=== PATIENT | male | born 1985 | race African-American/Black ===

== ENCOUNTER 2018-11-02 23:01 | Emergency (ER) | payer SELFPAY ==
[2018-11-03] MEDS ORDERED: LIDOCAINE 1% INJ-PF (10 MG/ML) 30 ML SDV INJ ONE (00:05)
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
--- NOTE | 2018-11-03 01:07 | ER Document Report ---
Procedures - Laceration/Wound Repair Distal Left FA Wound length (cm): 5 Wound's Depth, Shape: Superficial, Irregular Laceration pre-procedure: Sterile PPE donned Anesthetic type: 1% Lidocaine Wound explored: Clean Wound Debrided: Minimal Wound Repaired With: Sutures Suture Size/Type: 4:0 Number of Sutures: 8 Post-procedure NV exam normal: Yes Complications: No Mid Left FA Wound length (cm): 4 Wound's Depth, Shape: Superficial Laceration pre-procedure: Sterile PPE donned Anesthetic type: 1% Lidocaine Wound explored: Clean Wound Repaired With: Sutures Suture Size/Type: 4:0 Number of Sutures: 7 Post-procedure NV exam normal: Yes Complications: No Upper L Arm Wound length (cm): 2 Wound's Depth, Shape: Superficial Laceration pre-procedure: Sterile PPE donned Anesthetic type: 1% Lidocaine Wound explored: Clean Wound Debrided: Minimal Wound Repaired With: Sutures Suture Size/Type: 4:0 Number of Sutures: 2 Post-procedure NV exam normal: Yes Complications: No Left abdomen Wound length (cm): 4 Wound's Depth, Shape: Superficial Laceration pre-procedure: Sterile PPE donned Anesthetic type: 1% Lidocaine Wound explored: Clean Wound Debrided: Minimal Wound Repaired With: Sutures Suture Size/Type: 4:0 Number of Sutures: 4 Post-procedure NV exam normal: Yes Complications: No Misc Mid L arm lacerations x3 Wound length (cm): 3 Wound's Depth, Shape: Superficial Laceration pre-procedure: Sterile PPE donned Anesthetic type: 1% Lidocaine Wound Repaired With: Dermabond Complications: No
[2018-11-03] MEDS ORDERED: OXYCODONE-ACETAMINOPHEN 5-325 MG TABLET PO ONE (01:44)
[2018-11-03] MEDS ORDERED: IBUPROFEN 600 MG TABLET PO ONE (01:44)
[2018-11-03 01:59] VITALS: BP 121/58
== END 2018-11-03 02:31 | disposition home or self-care (01) ==
LOC: EDBD → ER 23:01
DX: S51.812A Laceration without foreign body of left forearm, initial encounter (principal); S41.112A Laceration without foreign body of left upper arm, initial encounter; S61.512A Laceration without foreign body of left wrist, initial encounter; S21.112A Laceration without foreign body of left front wall of thorax without penetration into thoracic cavity, initial encounter; S31.114A Laceration without foreign body of abdominal wall, left lower quadrant without penetration into peritoneal cavity, initial encounter; X99.9XXA Assault by unspecified sharp object, initial encounter
CPT/HCPCS: 99282; 12005; J3490

== ENCOUNTER 2018-11-11 14:18 | Emergency (ER) | payer SELFPAY ==
[2018-11-11 14:29] VITALS: BP 132/77
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
[2018-11-11] MEDS ORDERED: HYDROCODONE/ACETAMINOPHEN 5-325 MG TABLET PO ONE (15:05)
== END 2018-11-11 15:27 | disposition home or self-care (01) ==
LOC: ER 14:18
DX: L08.9 Local infection of the skin and subcutaneous tissue, unspecified (principal); S51.812A Laceration without foreign body of left forearm, initial encounter; W26.0XXA Contact with knife, initial encounter; Y93.89 Activity, other specified
CPT/HCPCS: 99282

== ENCOUNTER 2018-11-16 09:48 | Emergency (ER) | payer SELFPAY ==
[2018-11-16 09:55] VITALS: BP 128/96
[2018-11-16] MEDS ORDERED: IBUPROFEN 800 MG TABLET PO ONE (10:17)
--- NOTE | 2018-11-16 11:04 | RADIOLOGY REPORT (SQ) ---
EXAM DESCRIPTION: SACRUM AND COCCYX COMPLETED DATE/TIME: 11/16/2018 10:52 am REASON FOR STUDY: pain/fall COMPARISON: None. NUMBER OF VIEWS: Three views. TECHNIQUE: AP, lateral, and tilt views of the sacrum and coccyx. LIMITATIONS: None. FINDINGS: MINERALIZATION: Normal. BONES: No acute fracture or dislocation. No worrisome bone lesions. SOFT TISSUES: No soft tissue swelling. No foreign body. OTHER: No other significant finding. IMPRESSION: NEGATIVE STUDY OF THE SACRUM AND COCCYX. TECHNICAL DOCUMENTATION: JOB ID: [id number] [employer]- All Rights Reserved Reading location - IP/workstation name: [email or web address]
--- NOTE | 2018-11-16 11:04 | RADIOLOGY REPORT (SQ) ---
EXAM DESCRIPTION: FOOT LEFT COMPLETE COMPLETED DATE/TIME: 11/16/2018 10:52 am REASON FOR STUDY: pain COMPARISON: None. NUMBER OF VIEWS: Three views. TECHNIQUE: AP, lateral and oblique radiographic images acquired of the left foot. LIMITATIONS: None. FINDINGS: MINERALIZATION: Normal. BONES: No acute fracture or dislocation. No worrisome bone lesions. JOINTS: No effusions. SOFT TISSUES: No soft tissue swelling. No foreign body. OTHER: No other significant finding. IMPRESSION: NEGATIVE STUDY OF THE LEFT FOOT. NO RADIOGRAPHIC EVIDENCE OF ACUTE INJURY. TECHNICAL DOCUMENTATION: JOB ID: [id number] [employer]- All Rights Reserved Reading location - IP/workstation name: [email or web address]
--- NOTE | 2018-11-16 11:07 | ER Document Report ---
HPI - HPI Patient complains to provider of: foot and buttocks pain Time Seen by Provider: 11/16/18 10:15 Pain Level: 5 Context: Patient is otherwise healthy 33-year-old male presents to the emergency department for left foot pain as well as coccyx pain. Patient states yesterday evening he actually tripped and fell down 2 stairs. States he landed on the bottom of his left heel and on his buttocks. Patient's denying hitting his head, neck, upper back. Patient's denying any loss of consciousness or vomiting. Patient is denying any numbness or tingling in any extremity. Patient's denying any loss of bowel or bladder or urinary retention. Patient states his pain is mostly located in the heel of his left foot and right on his tailbone. Patient denies any pain in the lateral or medial left malleolus. - CONSTITUTIONAL Constitutional: DENIES: Fever, Chills - MUSCULOSKELETAL Musculoskeletal: REPORTS: Extremity pain - left ankle Past Medical History - General Information source: Patient - Social History Smoking Status: Never Smoker Chew tobacco use (# tins/day): No Frequency of alcohol use: None Drug Abuse: None Family History: Reviewed & Not Pertinent Patient has suicidal ideation: No Patient has homicidal ideation: No Renal/ Medical History: Denies: Hx Peritoneal Dialysis Vertical Provider Document - CONSTITUTIONAL Agree With Documented VS: Yes Notes: GENERAL: Alert, interacts well. No acute distress. HEAD: Normocephalic, atraumatic. EYES: Pupils equal, round, and reactive to light. Extraocular movements intact. ENT: Oral mucosa moist, tongue midline. NECK: Full range of motion. Supple. Trachea midline. LUNGS: Clear to auscultation bilaterally, no wheezes, rales, or rhonchi. No respiratory distress. HEART: Regular rate and rhythm. No murmur ABDOMEN: Soft, non-tender. Non-distended. Bowel sounds present in all 4 quadrants. EXTREMITIES: Moves all 4 extremities spontaneously. No edema, normal radial and dorsalis pedis pulses bilaterally. No cyanosis. Generalized pains noted in the left heel, no erythema, no ecchymosis, no swelling noted. Full range of motion left ankle, no left medial or lateral malleolus pain. No left knee pain, no left hip pain. BACK: no cervical, thoracic, lumbar midline tenderness. No saddle anesthesia, normal distal neurovascular exam. Generalized pain the patient's coccyx region. No erythema, no swelling, no ecchymosis noted. NEUROLOGICAL: Alert and oriented x3. Normal speech. cranial nerves II through XII grossly intact PSYCH: Normal affect, normal mood. SKIN: Warm, dry, normal turgor. No rashes or lesions noted. - INFECTION CONTROL TRAVEL OUTSIDE OF THE [place] IN LAST 30 DAYS: No Course - Re-evaluation Re-evalutation: 11/16/18 11:10 Foot X-Ray 11/16/18 10:17 IMPRESSION: NEGATIVE STUDY OF THE LEFT FOOT. NO RADIOGRAPHIC EVIDENCE OF ACUTE INJURY. Sacrum and Coccyx X-Ray 11/16/18 10:17 IMPRESSION: NEGATIVE STUDY OF THE SACRUM AND COCCYX. Discussed with patient these results at bedside. Discussed use of crutches and Giovany wrap for pain in right heel. Discussed close follow-up with primary care provider and orthopedics as needed. At this time will discharge with return precautions and follow-up recommendations. Verbal discharge instructions given a the bedside and opportunity for questions given. Medication warnings reviewed. Patient is in agreement with this plan and has verbalized understanding of return precautions and the need for primary care follow-up in the next 24-72 hours. This medical record was dictated with voice recognizing software. There may be grammatical, syntax errors that are unintended. - Vital Signs Vital signs: Temp Pulse Resp BP Pulse Ox 98.5 F 78 16 128/96 H 98 11/16/18 09:53 11/16/18 09:53 11/16/18 09:53 11/16/18 09:53 11/16/18 09:53 Discharge - Discharge Clinical Impression: Coccyx pain Heel pain Qualifiers: Laterality: left Qualified Code(s): M79.672 - Pain in left foot Condition: Stable Disposition: HOME, SELF-CARE Instructions: Coccyx Injury ([facility]) Additional Instructions: As we discussed you have been seen and treated in the emergency department for an injury to your left foot and heel Kocsis bone. Your x-rays revealed no signs of broken bones. Please use Giovany wrap and crutches as needed. Please also take [id number] Tylenol or Motrin for generalized pain. Please follow-up with your primary care provider in the next 24 to 48 hours. Please also follow-up with orthopedics, phone numbers will be provided in this packet. Please return to the emergency room for any further concerns. Forms: Return to Work Referrals: JAKUB REED MD [ACTIVE STAFF] - Follow up as needed
== END 2018-11-16 11:20 | disposition home or self-care (01) ==
LOC: ER 09:48
DX: M53.3 Sacrococcygeal disorders, not elsewhere classified (principal); M79.672 Pain in left foot; W10.9XXA Fall (on) (from) unspecified stairs and steps, initial encounter
CPT/HCPCS: 72220; 99283